=== PATIENT | male | born 1990 | race Two or more races ===

== ENCOUNTER 2016-11-28 01:37 | Emergency (ER) | payer MEDICAID, OTHER ==
[~2016-11-28] VITALS: Ht 167.6 cm; Wt 81.6 kg
[2016-11-28 02:05] VITALS: BP 166/99
[2016-11-28] MEDS ORDERED: Norco 5mg/325mg tab ORAL ONE (02:15)
[2016-11-28] MEDS ORDERED: IBUPROFEN600 MG ORAL (02:15)
[2016-11-28] MEDS ORDERED: HYDROCODON-ACE1 EA15 ORAL (02:15)
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
[2016-11-28 02:23] VITALS: BP 166/99
== END 2016-11-28 02:23 | disposition home or self-care (01) ==
LOC: EMR 02:09
DX: S16.1XXA Strain of muscle, fascia and tendon at neck level, initial encounter (principal); V43.52XA Car driver injured in collision with other type car in traffic accident, initial encounter; Y93.9 Activity, unspecified; Y92.410 Unspecified street and highway as the place of occurrence of the external cause; I10 Essential (primary) hypertension; E11.9 Type 2 diabetes mellitus without complications
CPT/HCPCS: 99282